=== PATIENT | male | born 1970 | race Caucasian/White ===

== ENCOUNTER 2020-12-24 04:51 | Emergency (ER) | payer BC ==
[2020-12-24] MEDS ORDERED: HYDROCODONE-AC1 EACH PO ×2 (08:04→08:10)
[2020-12-24] MEDS ORDERED: CYCLOBENZAPRINE10 MG PO (08:04)
[2020-12-24] MEDS ORDERED: IBU800 MG PO (08:04)
== END 2020-12-24 10:18 | disposition home or self-care (01) ==
LOC: ER1 04:51
DX: M54.5 Low back pain (principal)
CPT/HCPCS: 72100; 96372; 99283; J1885

== ENCOUNTER → 2021-03-02 | Outpatient (CLI) | payer BC ==
[~2021-03-02] MED LIST: CYCLOBENZAPRINE10 MG PO; HYDROCODONE-AC1 EACH PO; IBU800 MG PO
== END ==
LOC: HEART 5 10:58
DX: R07.9 Chest pain, unspecified (principal); I49.3 Ventricular premature depolarization